=== PATIENT | female | born 1960 | race Caucasian/White ===

== ENCOUNTER → 2016-02-24 | Day surgery (SDC) | payer OTHER ==
[~2016-02-24] MED LIST: LISINOPRIL10 M1 PO; SYNTHROID125 MCG PO; VITAMIN B-121000 MC3 PO
--- NOTE | 2016-02-24 09:33 | Operative Report ---
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 She is brought to the operating room and given anesthesia. Preoperative clindamycin 600 mg was given. The left breast was prepped and draped in a sterile fashion ChloraPrep. The prior incision was approached. Local anesthesia of 1% lidocaine mixed Marcaine Was Given. A Curvilinear Incision Was Made in the Skin Was Excised in Addition to the Breast Tissue Marking That As the Lateral Margin. The Prior Excisional Biopsy Cavity Was Identified. A Reexcision Was Performed in Separate Sections. A Caudal Margin, Cranial Margin, Medial Margin, Deep Margin, and Anterior Margin Were Taken. In Taking All of the Margins Together the Entire Excisional Biopsy Cavity Was Excised. Hemostasis Was Adequate. Mammary Clips Were Placed at the Margins a Lumpectomy Bed. Deep Tissue Was Approximated Using Interrupted Vicryl Sutures, and the Skin Was Closed Using a Running Monocryl Subcuticular Stitch. Steri-Strips and Sterile Dressings Were Applied, the Patient's Transferred to the Recovery Room in Satisfactory Condition Having Tolerated the Procedure Well.
== END ==
LOC: STS 02:06
DX: D05.12 Intraductal carcinoma in situ of left breast (principal); E03.9 Hypothyroidism, unspecified; Z80.3 Family history of malignant neoplasm of breast
CPT/HCPCS: 88305; J2250